=== PATIENT | male | born 1970 | race Hispanic/Latino ===

== ENCOUNTER 2019-06-28 19:16 | Emergency (ER) | payer MEDICARE ==
[2019-06-28 21:13] LABS: Basophils # (Auto) 0.1 K/mm3 (0.0-0.1); Basophils % (Auto) 0.7 % (0.0-1.8); Eosinophils # (Auto) 0.7 K/mm3 (0.0-0.4); Eosinophils % (Auto) 8.3 % (0.0-4.3); Hematocrit 45.3 % (35.5-45.6); Hemoglobin 15.4 gm/dl (11.8-15.2); Lymphocytes # (Auto) 2.4 K/mm3 (1.2-5.4); Lymphocytes % (Auto) 30.3 % (13.4-35.0); Mean Corpuscular HGB Conc 34 % (32-34); Mean Corpuscular Volume 91 fl (84-94); Monocytes % (Auto) 12.4 % (0.0-7.3); Platelet Count 243 K/mm3 (140-440); Red Blood Count 4.96 M/mm3 (3.65-5.03); Red Cell Distribution Width 14.2 % (13.2-15.2)
[2019-06-28 21:35] LABS: Alanine Aminotransferase 17 units/L (7-56); Albumin 4.5 g/dL (3.9-5); BUN/Creatinine Ratio 13; Blood Urea Nitrogen 12 mg/dL (9-20); Hemolysis Index 58
--- NOTE | 2019-06-28 22:40 | Emergency Department Report ---
ED Psych HPI - General Chief Complaint: Psych Stated Complaint: SUICIDAL Time Seen by Provider: 06/28/19 19:32 Source: patient, EMS Mode of arrival: Ambulatory - History of Present Illness Initial Comments: CC: "I'm just having some suicidal thoughts." HPI: Mr. Garg is a 48-year-old male with history of schizophrenia presents with "suicidal thoughts". He asked a friend to call 911. He was brought by [facility]. He denies any physical complaints with the exception of mild fatigue. He does not have a plan to harm himself. He desires to be transferred to [facility]. He is currently not under the care of a psychiatrist. However he states that he had refills of his psychiatric medications at pharmacy. He takes 4 medications. However he is only able to recall to medications which include Seroquel and Depakote. He denies auditory or visual hallucinations he denies homicidal ideation. MD Complaint: suicidal ideation, feels depressed -: Gradual, days(s) (several) Associated Psychiatric Symptoms: depression, suicidal ideation History of same: Yes Quality: constant Improves With: none Worsens With: none Context: significant life stressor Associated Symptoms: denies other symptoms, other (fatigue) Treatments Prior to Arrival: none If Self Harm: admits thoughts of - Related Data Home Medications Medication Instructions Recorded Confirmed Last Taken Benztropine [Cogentin] 0.5 mg PO DAILY 06/28/19 06/28/19 Unknown Divalproex ER [DepaKOTE ER] 250 mg PO DAILY 06/28/19 06/28/19 Unknown Propranolol [Inderal] 10 mg PO DAILY 06/28/19 06/28/19 Unknown risperiDONE [RisperDAL] 1 mg PO DAILY 06/28/19 06/28/19 Unknown Allergies Allergy/AdvReac Type Severity Reaction Status Date / Time No Known Allergies Allergy Unverified 10/22/18 03:38 ED Review of Systems ROS: Stated complaint: SUICIDAL Other details as noted in HPI Comment: All other systems reviewed and negative Constitutional: other (fatigue). denies: fever Gastrointestinal: denies: abdominal pain, nausea, vomiting ED Past Medical Hx - Past Medical History Previous Medical History?: Yes Hx Psychiatric Treatment: Yes (Schizophrenia) - Surgical History Past Surgical History?: No - Social History Smoking Status: Current Every Day Smoker Substance Use Type: Alcohol - Medications Home Medications: Home Medications Medication Instructions Recorded Confirmed Last Taken Type Benztropine [Cogentin] 0.5 mg PO DAILY 06/28/19 06/28/19 Unknown History Divalproex ER [DepaKOTE ER] 250 mg PO DAILY 06/28/19 06/28/19 Unknown History Propranolol [Inderal] 10 mg PO DAILY 06/28/19 06/28/19 Unknown History risperiDONE [RisperDAL] 1 mg PO DAILY 06/28/19 06/28/19 Unknown History ED Physical Exam - General Limitations: No Limitations General appearance: alert, in no apparent distress - Head Head exam: Present: atraumatic, normocephalic - Eye Eye exam: Present: normal appearance - ENT ENT exam: Present: mucous membranes moist - Neck Neck exam: Present: normal inspection, full ROM - Respiratory Respiratory exam: Present: normal lung sounds bilaterally. Absent: respiratory distress, wheezes, rales, rhonchi - Cardiovascular Cardiovascular Exam: Present: regular rate, normal rhythm, normal heart sounds. Absent: systolic murmur, diastolic murmur, rubs, gallop - GI/Abdominal GI/Abdominal exam: Present: soft, normal bowel sounds. Absent: distended, tenderness, guarding, rebound - Rectal Rectal exam: Present: deferred - Extremities Exam Extremities exam: Present: normal inspection - Back Exam Back exam: Present: normal inspection - Neurological Exam Neurological exam: Present: alert, oriented X3 - Psychiatric Psychiatric exam: Present: depressed, flat affect, suicidal ideation - Skin Skin exam: Present: warm, dry, intact, normal color. Absent: rash ED Course Vital Signs 06/28/19 06/29/19 21:35 08:00 Temperature 98.2 F 97.6 F Pulse Rate 80 79 Respiratory 18 18 Rate Blood Pressure 106/61 115/73 [Left] O2 Sat by Pulse 96 99 Oximetry ED Medical Decision Making - Lab Data Result diagrams: 06/28/19 21:00 06/28/19 21:00 Laboratory Results - last 24 hr 06/28/19 06/28/19 06/28/19 21:00 21:00 21:00 WBC 8.1 RBC 4.96 Hgb 15.4 H Hct 45.3 MCV 91 MCH 31 MCHC 34 RDW 14.2 Plt Count 243 Lymph % (Auto) 30.3 [place] % (Auto) 12.4 H Eos % (Auto) 8.3 H Baso % (Auto) 0.7 Lymph # 2.4 [place] # 1.0 H Eos # 0.7 H Baso # 0.1 Seg Neutrophils % 48.3 Seg Neutrophils # 3.9 Sodium 143 Potassium 4.3 Chloride 102.6 Carbon Dioxide 28 Anion Gap 17 BUN 12 Creatinine 0.9 Estimated GFR > 60 BUN/Creatinine Ratio 13 Glucose 98 Calcium 9.0 Total Bilirubin 0.30 AST 19 ALT 17 Alkaline Phosphatase 65 Total Protein 6.7 Albumin 4.5 Albumin/Globulin Ratio 2.0 Salicylates < 0.3 L Acetaminophen Plasma/Serum Alcohol 06/28/19 06/28/19 21:00 21:00 WBC RBC Hgb Hct MCV MCH MCHC RDW Plt Count Lymph % (Auto) [place] % (Auto) Eos % (Auto) Baso % (Auto) Lymph # [place] # Eos # Baso # Seg Neutrophils % Seg Neutrophils # Sodium Potassium Chloride Carbon Dioxide Anion Gap BUN Creatinine Estimated GFR BUN/Creatinine Ratio Glucose Calcium Total Bilirubin AST ALT Alkaline Phosphatase Total Protein Albumin Albumin/Globulin Ratio Salicylates Acetaminophen < 5.0 L Plasma/Serum Alcohol < 0.01 - Medical Decision Making Mr. Garg is a 48-year-old male with history of schizophrenia. He presents with "suicidal thoughts". He does not plan to harm himself. Awaiting psychiatric evaluation. At this time he does not meet criteria for involuntary hold. He is calm cooperative insightful. He is medically clear for psychiatric care. I have consulted our psychiatric service as well as case management. I have reviewed labs. CBC chemistry within normal limits. Serum toxicology screen negative. Anticipate discharge after psychiatric consultation. Critical care attestation.: If time is entered above; I have spent that time in minutes in the direct care of this critically ill patient, excluding procedure time. ED Disposition Clinical Impression: Schizophrenia, Acute depression Disposition: DC-01 TO HOME OR SELFCARE Is pt being admited?: No Does the pt Need Aspirin: No Condition: Stable Instructions: Depression (ED) Referrals: [facility] [Outside] - 3-5 Days
[2019-06-28 22:47] LABS: Bilirubin,Urine NEG (Negative); Blood,Urine NEG (Negative); Color,Urine Straw (Yellow); Protein,Urine <15 mg/dL mg/dL (Negative); Urobilinogen,Urine < 2.0 mg/dL (<2.0); WBC,Urine < 1.0 /HPF (0.0-6.0)
[2019-06-28 23:02] LABS: Amphetamine Screen,Urine PRESUMPTIVE NEGATIVE; Benzodiazepines Screen,Urine PRESUMPTIVE NEGATIVE; Cannabinoid Screen,Urine PRESUMPTIVE NEGATIVE; Cocaine Screen,Urine PRESUMPTIVE NEGATIVE; Methadone Screen,Urine PRESUMPTIVE NEGATIVE; Opiate Screen,Urine PRESUMPTIVE NEGATIVE
[2019-06-29 11:36] VITALS: BP 115/73
--- NOTE | 2019-06-29 11:36 | Consultation ---
History of Present Illness - Reason for Consult Consult date: 06/29/19 Reason for consult: Mental Health EValuation Requesting physician: JUNITO HERNANDEZ - Chief Complaint Chief complaint: "I feel better" - History of Present Psychiatric Illness 48-year-old white male who presented to the ER for "suicidal thoughts.". Today the patient was clam and cooperative during the assessment. He stated that he was dealing with "something" and came to the ER. He stated that he felt somewhat "depressed", but feel "much better today. He stated, "I got it together now." He stated that he spent sometime at [facility] in the past when asked about his mental health. He stated the he take Seroquel and Cogentin for Schizophrenia. He stated that he do not have a psychiatrist at this time, He denies any problems att his [facility] when asked. He denies SI/HI's and AVH's. He denies erratic sleep and a poor appetite. He denies recreational drug use and alcohol consumption (etoh). Per collateral information from the patient's mother Leanne Garg at [phone], she confirmed that the patient has Schizophrenia and he reside at a group in [place], [place]. She stated that his psy medications were recently d elivered to him by mail. Medications and Allergies Allergies Allergy/AdvReac Type Severity Reaction Status Date / Time No Known Allergies Allergy Unverified 10/22/18 03:38 Home Medications Medication Instructions Recorded Confirmed Last Taken Type Benztropine [Cogentin] 0.5 mg PO DAILY 06/28/19 06/28/19 Unknown History Divalproex ER [DepaKOTE ER] 250 mg PO DAILY 06/28/19 06/28/19 Unknown History Propranolol [Inderal] 10 mg PO DAILY 06/28/19 06/28/19 Unknown History risperiDONE [RisperDAL] 1 mg PO DAILY 06/28/19 06/28/19 Unknown History Past psychiatric history - Past Medical History Past Medical History: No medical history Past Surgical History: No surgical history - past Psychiatric treatment and history psychiatric treatment history: Inpatient psy services in the past. Denies a fam psy hx. - Social History Social history: other (Reside at a [facility] ) Mental Status Exam - Vital signs Last Vital Signs Temp 98.2 F 06/28/19 21:35 Pulse 80 06/28/19 21:35 Resp 18 06/28/19 21:35 BP 106/61 06/28/19 21:35 Pulse Ox 96 06/28/19 21:35 - Exam Narrative exam: MSE: Appearance: calm, cooperative Behavior: regular eye contact Speech: regular rate and tone Mood: "better" Affect: flat Thought Process: circumstantial Thought Content: denies SI/HI's and AVH's Motor Activity: lying in bed Cognition: A/O x 3 Insight: fair Judgment: fair Results Result Diagrams: 06/28/19 21:00 06/28/19 21:00 Abnormal lab results 06/28/19 06/28/19 06/28/19 Range/Units 21:00 21:00 21:00 Hgb 15.4 H (11.8-15.2) gm/dl [place] % (Auto) 12.4 H (0.0-7.3) % Eos % (Auto) 8.3 H (0.0-4.3) % Carson # 1.0 H (0.0-0.8) K/mm3 Eos # 0.7 H (0.0-0.4) K/mm3 Salicylates < 0.3 L (2.8-20.0) mg/dL Acetaminophen < 5.0 L (10.0-30.0) ug/mL Valproic Acid (50-100) ug/mL 06/28/19 Range/Units 23:27 Hgb (11.8-15.2) gm/dl [place] % (Auto) (0.0-7.3) % Eos % (Auto) (0.0-4.3) % Carson # (0.0-0.8) K/mm3 Eos # (0.0-0.4) K/mm3 Salicylates (2.8-20.0) mg/dL Acetaminophen (10.0-30.0) ug/mL Valproic Acid 29.7 L (50-100) ug/mL All other labs normal. Assessment and Plan Assessment and plan: Impression: Hx of Schizophrenia per the patient. No overt psychosis with the patient. Today the patient was calm and cooperative during the assessment. Recommendations/Plan: The patient do not need any prescriptions. Dispo: The patient can follow up with [facility] for outpatient psy services. psy sign off. Will staff with Dr Mikayla Agarwal.
== END 2019-06-29 14:25 | disposition home or self-care (01) ==
LOC: ED 19:16
DX: F32.9 Major depressive disorder, single episode, unspecified (principal); F20.9 Schizophrenia, unspecified; F17.200 Nicotine dependence, unspecified, uncomplicated; Z79.899 Other long term (current) drug therapy
CPT/HCPCS: 36415; 80053; 80164; 80307; 80320; 81001; 85025; 99284; G0480

== ENCOUNTER 2019-10-25 21:52 | Emergency (ER) | payer MEDICARE ==
[2019-10-25 22:54] LABS: Basophils % (Auto) 0.2 % (0.0-1.8); Eosinophils # (Auto) 0.4 K/mm3 (0.0-0.4); Eosinophils % (Auto) 5.3 % (0.0-4.3); Hematocrit 44.2 % (35.5-45.6); Hemoglobin 15.1 gm/dl (11.8-15.2); Lymphocytes % (Auto) 25.7 % (13.4-35.0); Mean Corpuscular HGB Conc 34 % (32-34); Mean Corpuscular Volume 91 fl (84-94); Monocytes # (Auto) 0.9 K/mm3 (0.0-0.8); Monocytes % (Auto) 11.5 % (0.0-7.3); Platelet Count 237 K/mm3 (140-440); Red Blood Count 4.84 M/mm3 (3.65-5.03); Red Cell Distribution Width 13.7 % (13.2-15.2)
[2019-10-25 23:12] LABS: Alanine Aminotransferase 17 units/L (7-56); Albumin 4.1 g/dL (3.9-5); BUN/Creatinine Ratio 13; Blood Urea Nitrogen 13 mg/dL (9-20); Calcium 9.7 mg/dL (8.4-10.2); Hemolysis Index 12
[2019-10-25 23:43] LABS: Bilirubin,Urine NEG (Negative); Blood,Urine NEG (Negative); Color,Urine Straw (Yellow); Protein,Urine <15 mg/dL mg/dL (Negative); Urobilinogen,Urine < 2.0 mg/dL (<2.0)
[2019-10-26 00:01] LABS: Amphetamine Screen,Urine PRESUMPTIVE NEGATIVE; Benzodiazepines Screen,Urine PRESUMPTIVE NEGATIVE; Cannabinoid Screen,Urine PRESUMPTIVE NEGATIVE; Cocaine Screen,Urine PRESUMPTIVE NEGATIVE; Methadone Screen,Urine PRESUMPTIVE NEGATIVE; Opiate Screen,Urine PRESUMPTIVE NEGATIVE
--- NOTE | 2019-10-26 01:39 | Emergency Department Report ---
<JUNITO HERNANDEZ - Last Filed: 10/26/19 01:36> ED Psych HPI - General Chief Complaint: Psych Stated Complaint: HALLUCINATIONS Time Seen by Provider: 10/25/19 22:27 Source: EMS Mode of arrival: Ambulatory - History of Present Illness Initial Comments: Mr. Garg is a pleasant 49-year-old male with history of schizophrenia. [facility]. He states that he has "hallucinations". Mr. Garg were unable to describe the hallucinations. He takes Invega injection. He is follow at [facility] for outpatient mental care. He denies any physical concerns. He has lived in transitional housing for the past month. He does not desire to return to that living arrangement. Prior to staying at the transitional home, he lived in a detention. Mr. aGrg denies suicidal or homicidal ideation. According to psychiatric consultation documentation in June, patient's mother is Leanne Garg at [phone] Complaint: other ("hallucinations") -: Gradual, days(s) (several days) Associated Psychiatric Symptoms: auditory hallucinations History of same: Yes Quality: constant Improves With: none Worsens With: none Context: other (receives Invega injection) Associated Symptoms: denies other symptoms Treatments Prior to Arrival: none - Related Data Home Medications Medication Instructions Recorded Confirmed Last Taken Benztropine [Cogentin] 0.5 mg PO DAILY 06/28/19 10/25/19 Unknown Divalproex ER [DepaKOTE ER] 250 mg PO DAILY 06/28/19 10/25/19 Unknown Propranolol [Inderal] 10 mg PO DAILY 06/28/19 10/25/19 Unknown risperiDONE [RisperDAL] 1 mg PO DAILY 06/28/19 10/25/19 Unknown Allergies Allergy/AdvReac Type Severity Reaction Status Date / Time No Known Allergies Allergy Unverified 10/22/18 03:38 ED Review of Systems Comment: All other systems reviewed and negative Constitutional: denies: fever, malaise Respiratory: denies: cough Cardiovascular: denies: chest pain Gastrointestinal: denies: abdominal pain, nausea, vomiting Neurological: denies: headache Psychiatric: auditory hallucinations ED Past Medical Hx - Past Medical History Previous Medical History?: Yes Hx Psychiatric Treatment: Yes (Schizophrenia) - Social History Smoking Status: Current Every Day Smoker Substance Use Type: None - Medications Home Medications: Home Medications Medication Instructions Recorded Confirmed Last Taken Type Benztropine [Cogentin] 0.5 mg PO DAILY 06/28/19 10/25/19 Unknown History Divalproex ER [DepaKOTE ER] 250 mg PO DAILY 06/28/19 10/25/19 Unknown History Propranolol [Inderal] 10 mg PO DAILY 06/28/19 10/25/19 Unknown History risperiDONE [RisperDAL] 1 mg PO DAILY 06/28/19 10/25/19 Unknown History ED Physical Exam - General Limitations: No Limitations General appearance: alert, in no apparent distress, other (cooperative will answer questions will cooperate) - Head Head exam: Present: atraumatic, normocephalic - Eye Eye exam: Present: normal appearance - ENT ENT exam: Present: mucous membranes moist - Neck Neck exam: Present: normal inspection, full ROM - Respiratory Respiratory exam: Present: normal lung sounds bilaterally. Absent: respiratory distress, wheezes, rales, rhonchi - Cardiovascular Cardiovascular Exam: Present: regular rate, normal rhythm, normal heart sounds. Absent: systolic murmur, diastolic murmur, rubs, gallop - GI/Abdominal GI/Abdominal exam: Present: soft, normal bowel sounds. Absent: distended, tenderness, guarding, rebound - Rectal Rectal exam: Present: deferred - Extremities Exam Extremities exam: Present: normal inspection - Neurological Exam Neurological exam: Present: alert, oriented X3 - Psychiatric Psychiatric exam: Present: normal mood, flat affect - Skin Skin exam: Present: warm, dry, intact, normal color. Absent: rash ED Medical Decision Making - Lab Data Result diagrams: 10/25/19 22:40 10/25/19 22:40 Laboratory Results - last 24 hr 10/25/19 10/25/19 10/25/19 22:40 22:40 22:40 WBC 7.7 RBC 4.84 Hgb 15.1 Hct 44.2 MCV 91 MCH 31 MCHC 34 RDW 13.7 Plt Count 237 Lymph % (Auto) 25.7 [place] % (Auto) 11.5 H Eos % (Auto) 5.3 H Baso % (Auto) 0.2 Lymph # 2.0 [place] # 0.9 H Eos # 0.4 Baso # 0.0 Seg Neutrophils % 57.3 Seg Neutrophils # 4.4 Sodium 142 Potassium 4.5 Chloride 104.1 Carbon Dioxide 27 Anion Gap 15 BUN 13 Creatinine 1.0 Estimated GFR > 60 BUN/Creatinine Ratio 13 Glucose 97 Calcium 9.7 Total Bilirubin 0.30 AST 29 ALT 17 Alkaline Phosphatase 55 Total Protein 6.1 L Albumin 4.1 Albumin/Globulin Ratio 2.1 Urine Color Urine Turbidity Urine pH Ur Specific Frannie Urine Protein Urine Glucose (UA) Urine Ketones Urine Blood Urine Nitrite Urine Bilirubin Urine Urobilinogen Ur Leukocyte Esterase Urine WBC (Auto) Urine RBC (Auto) Salicylates < 0.3 L Urine Opiates Screen Urine Methadone Screen Acetaminophen Ur Barbiturates Screen Ur Phencyclidine Scrn Ur Amphetamines Screen U Benzodiazepines Scrn Urine Cocaine Screen U Marijuana (THC) Screen Drugs of Abuse Note Plasma/Serum Alcohol 10/25/19 10/25/19 10/25/19 22:40 22:40 23:00 WBC RBC Hgb Hct MCV MCH MCHC RDW Plt Count Lymph % (Auto) [place] % (Auto) Eos % (Auto) Baso % (Auto) Lymph # [place] # Eos # Baso # Seg Neutrophils % Seg Neutrophils # Sodium Potassium Chloride Carbon Dioxide Anion Gap BUN Creatinine Estimated GFR BUN/Creatinine Ratio Glucose Calcium Total Bilirubin AST ALT Alkaline Phosphatase Total Protein Albumin Albumin/Globulin Ratio Urine Color Straw Urine Turbidity Clear Urine pH 6.0 Ur Specific Frannie 1.006 Urine Protein <15 mg/dl Urine Glucose (UA) Neg Urine Ketones Neg Urine Blood Neg Urine Nitrite Neg Urine Bilirubin Neg Urine Urobilinogen < 2.0 Ur Leukocyte Esterase Neg Urine WBC (Auto) 0.0 Urine RBC (Auto) 1.0 Salicylates Urine Opiates Screen Urine Methadone Screen Acetaminophen < 5.0 L Ur Barbiturates Screen Ur Phencyclidine Scrn Ur Amphetamines Screen U Benzodiazepines Scrn Urine Cocaine Screen U Marijuana (THC) Screen Drugs of Abuse Note Plasma/Serum Alcohol < 0.01 10/25/19 23:00 WBC RBC Hgb Hct MCV MCH MCHC RDW Plt Count Lymph % (Auto) [place] % (Auto) Eos % (Auto) Baso % (Auto) Lymph # [place] # Eos # Baso # Seg Neutrophils % Seg Neutrophils # Sodium Potassium Chloride Carbon Dioxide Anion Gap BUN Creatinine Estimated GFR BUN/Creatinine Ratio Glucose Calcium Total Bilirubin AST ALT Alkaline Phosphatase Total Protein Albumin Albumin/Globulin Ratio Urine Color Urine Turbidity Urine pH Ur Specific Frannie Urine Protein Urine Glucose (UA) Urine Ketones Urine Blood Urine Nitrite Urine Bilirubin Urine Urobilinogen Ur Leukocyte Esterase Urine WBC (Auto) Urine RBC (Auto) Salicylates Urine Opiates Screen Presumptive negative Urine Methadone Screen Presumptive negative Acetaminophen Ur Barbiturates Screen Presumptive negative Ur Phencyclidine Scrn Presumptive negative Ur Amphetamines Screen Presumptive negative U Benzodiazepines Scrn Presumptive negative Urine Cocaine Screen Presumptive negative U Marijuana (THC) Screen Presumptive negative Drugs of Abuse Note Disclamer Plasma/Serum Alcohol - Medical Decision Making Mr. Garg has history of schizophrenia. He presents with concern of "hallucinations". He does not appear to be a harm to himself or others. He is fairly organized in thought. He will answer questions directly. Does not appear to respond to internal stimuli. Awaiting psychiatric consultation and recommendations. Also requested case management consultation. He is medically clear for psychiatric care. CBC and chemistry serum tox urinalysis urine drug screen all within normal limits. ED Disposition Clinical Impression: Schizophrenia Disposition: DC-01 TO HOME OR SELFCARE Condition: Stable Instructions: Schizophrenia (ED) Additional Instructions: return if worse Referrals: [facility]Primary Care Provider[facility] <JUNO GREENE - Last Filed: 10/27/19 08:43> ED Psych HPI - History of Present Illness Initial Comments: Patient seen and examined by I contacted assessors and the patient still follow up with this outpatient team for treatment. ED Review of Systems ROS: Stated complaint: HALLUCINATIONS Other details as noted in HPI ED Course Vital Signs 10/25/19 10/26/19 10/26/19 22:23 07:00 07:46 Temperature 98.8 F 97.7 F Pulse Rate 75 83 Respiratory 16 18 Rate Blood Pressure 109/68 128/74 [Left] O2 Sat by Pulse 95 97 95 Oximetry 10/26/19 10/26/19 15:12 20:30 Temperature 97.8 F 97.3 F L Pulse Rate 98 H 85 Respiratory 18 Rate Blood Pressure 115/74 101/69 [Left] O2 Sat by Pulse 96 96 Oximetry ED Medical Decision Making - Lab Data Result diagrams: 10/25/19 22:40 10/25/19 22:40 Critical care attestation.: If time is entered above; I have spent that time in minutes in the direct care of this critically ill patient, excluding procedure time. ED Disposition Is pt being admited?: No Does the pt Need Aspirin: No Time of Disposition: 17:50
[2019-10-26] MEDS ORDERED: IBUPROFEN 800 MG TAB PO ONE (16:24)
--- NOTE | 2019-10-26 17:27 | XRay Report ---
Rib series-5 views INDICATION: left ribs pain. COMPARISON: None. IMPRESSION: No acute osseous abnormality or malalignment identified. There is a 2.3 cm nodule in the left midlung with otherwise clear lungs and normal heart size. Consider nonemergent follow-up CT [facility] for further evaluation of this finding. Signer Name: Joby Baugh MD Signed: 10/26/2019 5:22 PM Workstation Name: [id number]
[2019-10-26 20:31] VITALS: BP 101/69
== END 2019-10-26 20:36 | disposition home or self-care (01) ==
LOC: ED 21:52
DX: F20.9 Schizophrenia, unspecified (principal); F17.200 Nicotine dependence, unspecified, uncomplicated; Z79.899 Other long term (current) drug therapy
CPT/HCPCS: 36415; 80053; 80307; 80320; 81001; 85025; G0480